=== PATIENT | male | born 1960 | race Caucasian/White ===

== ENCOUNTER 2017-09-28 13:29 | Emergency (ER) | payer SELFPAY ==
[2017-09-28 14:14] LABS: ANION GAP 15.1
--- NOTE | 2017-09-28 14:47 | US ---
Clinical history: 57-year-old female with pain and swelling right lower extremity (foot injury 3 week s ago). Interpretation: Negative exam. No sign of intraluminal echogenic thrombus and normal compressibility deep veins of the right groin, thigh, knee and proximal calf. Satisfactory augmentation and venous waveforms demonstrated respectively in the posterior tibial vein right calf, popliteal vein behind the knee, and proximally in the femoral veins of the right thigh a nd groin. No popliteal cyst behind the right knee or hematoma right calf. CONCLUSION: Negative exam. No DVT right lower extremity.
--- NOTE | 2017-09-28 14:59 | EDM.PDOC ---
ED HPI GENERAL MEDICAL PROBLEM - General Stated Complaint: RT CALF, R/O DVT Time Seen by Provider: 09/28/17 14:45 Source of Information: Reports: Patient History Limitations: Reports: No Limitations - History of Present Illness INITIAL COMMENTS - FREE TEXT/NARRATIVE: This 57 yo male patient reports to the ED with a 3 week history of increased pain in his right lower extremity and right calf. The patient reports that he started to notice increased redness and swelling in the right extremity today. The patient reports that he has had x-rays of the extremity with no apparent injuries. Onset: Gradual Duration: Week(s):, Getting Worse Location: Reports: Lower Extremity, Right Quality: Reports: Ache, Dull Severity: Moderate Improves with: Reports: None Worsens with: Reports: None Associated Symptoms: Reports: No Other Symptoms Right Leg Pain Score (Numeric/FACES): 2 - Related Data Allergies Allergy/AdvReac Type Severity Reaction Status Date / Time No Known Allergies Allergy Verified 09/28/17 14:01 Home Meds: Home Meds Aspirin 325 mg PO ASDIRECTED 09/28/17 [History] Past Medical History - Past Health History Medical/Surgical History: Denies Medical/Surgical History Social & Family History - Tobacco Use Smoking Status *Q: Never Smoker - Caffeine Use Caffeine Use: Reports: Coffee - Recreational Drug Use Recreational Drug Use: No ED ROS GENERAL - Review of Systems Review Of Systems: ROS reveals no pertinent complaints other than HPI. ED EXAM, GENERAL - Physical Exam Exam: See Below Exam Limited By: No Limitations General Appearance: Alert, WD/WN, Moderate Distress Eye Exam: Bilateral Eye: EOMI, Normal Inspection Ears: Normal External Exam, Hearing Grossly Normal Nose: Normal Inspection Throat/Mouth: Normal Lips, Normal Teeth, Normal Gums, Normal Oropharynx, Normal Voice, No Airway Compromise Head: Atraumatic, Normocephalic Neck: Full Range of Motion Respiratory/Chest: No Respiratory Distress Cardiovascular: Normal Peripheral Pulses, Regular Rate, Rhythm (Male) Exam: Deferred Rectal (Males) Exam: Deferred Extremities: Leg Pain (right lower extremity pain with swelling (no apparent erythema or swelling at the time of examination). The patient did have a compression wrap on his right ankle and foot. ) Neurological: Alert, Oriented, CN II-XII Intact Psychiatric: Normal Affect, Normal Mood Skin Exam: Warm, Dry, Intact, Normal Color, No Rash Course - Vital Signs Last Recorded V/S: Last Vital Signs Temp 36.3 C 09/28/17 13:57 Pulse 62 09/28/17 13:57 Resp 14 09/28/17 13:57 BP 142/88 H 09/28/17 13:57 Pulse Ox 97 09/28/17 13:57 - Orders/Labs/Meds Labs: Laboratory Tests 09/28/17 09/28/17 09/28/17 Range/Units 13:40 13:40 13:40 WBC 8.4 (5.0-10.0) 10^3/uL RBC 5.18 (4.6-6.2) 10^6/uL Hgb 16.0 (14.0-18.0) g/dL Hct 43.5 (40.0-54.0) % MCV 84.0 (80-100) fL MCH 30.9 (27.0-34.0) pg MCHC 36.8 H (33.0-35.0) g/dL Plt Count 280 (150-450) 10^3/uL Neut % (Auto) 66.5 (42.2-75.2) % Lymph % (Auto) 24.9 (20.5-50.1) % [place] % (Auto) 7.5 (2-8) % Eos % (Auto) 0.5 L (1.0-3.0) % Baso % (Auto) 0.6 (0.0-1.0) % PT 9.9 (9.0-12.0) SEC INR 1.0 (0.9-1.2) Sodium 140 (135-145) mmol/L Potassium 4.1 (3.6-5.0) mmol/L Chloride 100 L (101-111) mmol/L Carbon Dioxide 29.0 (21.0-31.0) mmol/L Anion Gap 15.1 BUN 22 H (7-18) mg/dL Creatinine 1.3 (0.6-1.3) mg/dL Est Cr Clr Drug Dosing 66.77 mL/min Estimated GFR (MDRD) 57 BUN/Creatinine Ratio 16.92 Glucose 94 (74-105) mg/dL Calcium 9.5 (8.4-10.2) mg/dl Total Bilirubin 1.0 (0.2-1.0) mg/dL AST 25 (10-42) IU/L ALT 36 (10-60) IU/L Alkaline Phosphatase 64 (42-121) IU/L Total Protein 7.7 (6.7-8.2) g/dl Albumin 4.3 (3.2-5.5) g/dl Globulin 3.4 Albumin/Globulin Ratio 1.26 Departure - Departure Time of Disposition: 14:57 Disposition: Home, Self-Care 01 Condition: Fair Clinical Impression: Right leg pain - Discharge Information *PRESCRIPTION DRUG MONITORING PROGRAM REVIEWED*: Not Applicable *COPY OF PRESCRIPTION DRUG MONITORING REPORT IN PATIENT BREE: Not Applicable Instructions: Musculoskeletal Pain Forms: ED Department Discharge Care Plan Goals: The patient was advised of the examination, lab and ultrasound results during the visit. The patient was encouraged to continue to rest, elevate and compress the area. If the patient has any additional symptoms or concerns, the patient should follow-up with his primary care facility or return to the emergency department.
== END 2017-09-28 15:02 | disposition home or self-care (01) ==
LOC: DL.ED 13:29
DX: M79.604 Pain in right leg (principal)
CPT/HCPCS: 36415; 80053; 85025; 85610; 93971; 99283